=== PATIENT | female | born 1980 | race Caucasian/White ===

== ENCOUNTER 2016-10-10 15:11 | Emergency (ER) | payer BC ==
--- NOTE | ~2016-10-10 | ER ---
PATIENT'S NAME: ABILIO BONILLA [facility] AGE: 35 Y [address] ROOM: [place], [place] [address] LOCATION: ED ADMIT DATE: 10/10/2016 ER/Outpatient Report DISCHARGE DATE: 10/10/2016 FAMILY PHYSICIAN: Michael Mueller MD ATTENDING PHYSICIAN: Isrrael Watt Time of Arrival: 1511 hours. Time of Evaluation: 1515 hours. CHIEF COMPLAINT: Lightheaded, diarrhea, and vomiting. HISTORY OF PRESENT ILLNESS: This is a 35-year-old female, who presents to the ER, who states that she has not been feeling well for the past week or so. She states she has had nausea, diarrhea, and she did have a couple of emesis over this last week. She states that she went to [facility] today as she was feeling worse and they wanted to get a stool sample from her, so she was coming over here to the lab to get a stool cup to collect. When she got here, she started feeling lightheaded, she ended up sliding herself down the wall, and she was an contract administrative assistant alert and they brought her to the emergency room for further evaluation. The patient does not believe she has been running any fevers. She has had no recent antibiotic therapy or travel. She states that no one else that she has been around has been ill at home. ALLERGIES: KEFLEX, MUCINEX, AND SULFA. MEDICATIONS: None. PAST MEDICAL HISTORY: States she has a history of stomach problems. PAST SURGERIES: Cholecystectomy and a wrist surgery. SOCIAL HISTORY: She drinks couple of drinks weekly. Denies any drug or alcohol use. REVIEW OF SYSTEMS: A 10-point review of systems was completed and was negative with the except of those discussed in the HPI. PHYSICAL EXAMINATION: PATIENT'S NAME: ABILIO BONILLA [facility] AGE: 35 Y [address] ROOM: [place], [place] [address] LOCATION: ED ADMIT DATE: 10/10/2016 ER/Outpatient Report DISCHARGE DATE: 10/10/2016 FAMILY PHYSICIAN: Michael Mueller MD ATTENDING PHYSICIAN: Isrrael Watt VITAL SIGNS: Weight 108 kg taken, pulse 100, respirations 20, temperature 98.5 degrees tympanically, and saturations 98% on room air. Sonja Coma score is 15. GENERAL: Alert, calm, well-developed female, in no acute distress. HEENT: Head: Normocephalic. Eyes: Pupils are equal and reactive to light. She does display moist mucous membranes. LUNGS: Clear to auscultation bilaterally. No wheezes or crackles. Normal respiratory effort. HEART: Slightly tachycardic. Normal rhythm. No lifts, thrills, or murmurs. ABDOMEN: Soft. She has generalized tenderness in all 4 quadrants. No guarding. No rebound tenderness. She has good bowel sounds throughout. No masses are palpated. EXTREMITIES: No clubbing, cyanosis, or edema. Has full range of motion of all limbs. LABORATORY DATA: CBC: White count is 6.5, hemoglobin is 13.5, platelets 362, and ANC is 3.7. CMS: Potassium 3.6, sodium is 141, BUN is 7, and creatinine 0.9, otherwise unremarkable. HCG is less than 1.0. Urinalysis is negative for any infection. IMPRESSION: 1. Diarrhea. 2. Vomiting. 3. Lightheaded. ASSESSMENT AND PLAN: We did start an IV here in the emergency room. We did give her some IV fluids along with Zofran. She did rest comfortably her entire stay. Her abdomen remained nonsurgical prior to dismissal. We will dismiss her home with a prescription for Zofran to use as directed. She needs to continue clear fluids and bland diet. We did give her a stool specimen cup, but she was unable to provide that for us here in the emergency room. We will have her follow up with her primary care physician for followup care. The patient understands and agrees with care. RAYMOND CHRISTENSEN PA-C FOR MD LIANA DELEON/douglas /[id number] d: 10/11/16 0235 t: 10/22/16 0627, OUTPATIENT REPORT
[2016-10-10 15:56] LABS: BASOPHIL # 0.1 K/uL (0.0-0.2); BASOPHIL % 1.4 %; EOSINOPHIL % 0.5 %; HEMATOCRIT 40.4 % (33.0-46.0); HEMOGLOBIN 13.5 g/dL (11.0-15.0); IMMATURE GRANULOCYTE % 0.3 %; LYMPHOCYTE # 2.1 K/uL (0.8-4.0); LYMPHOCYTE % 31.6 %; MCH 28.9 pg (27.0-34.0); MCHC 33.4 gm/dL (32.0-36.5); MCV 86.5 fl (83.0-98.0); MONOCYTE # 0.6 K/uL (0.0-1.0); MONOCYTE % 9.4 %; MPV 10.3 fl (9.4-12.4); NEUTROPHIL # (ANC) 3.7 K/uL (1.8-7.8); NEUTROPHIL % 56.8 %; NRBC % 0 /100WBC (0-0.00); PLATELET COUNT 362 K/uL (150-450); RBC 4.67 M/uL (3.50-5.50); RDW-CV 12.6 % (11.9-14.6); WBC 6.5 K/uL (4.0-11.0)
[2016-10-10 16:18] LABS: ALBUMIN 4.1 gm/dL (3.5-5.0); ALK PHOS 44 IU/L (33-138); ALT 26 IU/L (12-78); ANION GAP 11.6 (10.0-19.0); AST 20 IU/L (10-40); BLOOD UREA NITROGEN 7 mg/dL (6-24); CALCIUM 8.1 mg/dL (8.5-10.5); CHLORIDE 104 mMol/L (96-110); CO2 29 mMol/L (22-32); CREATININE 0.9 mg/dL (0.5-1.1); ESTIMATED GFR (MDRD EQUATION) > 60; POTASSIUM 3.6 mMol/L (3.7-5.1); SODIUM 141 mMol/L (135-145); TOTAL BILIRUBIN 0.3 mg/dL (0.0-1.5); TOTAL PROTEIN 7.6 g/dL (6.0-8.4)
[2016-10-10 17:34] LABS: BILIRUBIN URINE NEGATIVE (NEGATIVE); BLOOD URINE 150 /UL (NEGATIVE); GLUCOSE URINE NEGATIVE (NEGATIVE); KETONE URINE NEGATIVE (NEGATIVE); LEUKOCYTES URINE NEGATIVE /UL (NEGATIVE); NITRITE URINE NEGATIVE (NEGATIVE); PH URINE 6.5 (4.0-8.0); PROTEIN URINE NEGATIVE (NEGATIVE); UROBILINOGEN URINE NORMAL (NORMAL)
[2016-10-10 17:40] LABS: COLOR URINE YELLOW (YELLOW); TURBIDITY URINE CLEAR (CLEAR)
[2016-10-10 17:50] LABS: BACTERIA URINE RARE (NEGATIVE); EPITHELIAL URINE 0-2 #/HPF (NEGATIVE); HYALINE CAST URINE 0-2 #/LPF (NEGATIVE); RBC URINE 0-2 #/HPF (NEGATIVE); WBC URINE 0-2 #/HPF (NEGATIVE)
== END 2016-10-10 17:32 | disposition disaster alternative care site (69) ==
LOC: GMED 15:11
PROVIDERS: Physician Assistant Medical
DX: R42 Dizziness and giddiness (principal); R11.10 Vomiting, unspecified; R19.7 Diarrhea, unspecified; Z88.2 Allergy status to sulfonamides; Z88.8 Allergy status to other drugs, medicaments and biological substances; Z90.49 Acquired absence of other specified parts of digestive tract
CPT/HCPCS: J2405; J7030; J7040